=== PATIENT | female | born 1955 | race Caucasian/White ===

== ENCOUNTER → 2016-11-11 | Outpatient (CLI) | payer BC ==
[2016-11-11 15:32] LABS: Basophils % (A) 0 %; CH 30.6; CHCM 32.7; Eosinophils # (A) 0.1 k/uL (0-0.7); Eosinophils % (A) 2 %; HCT 42.8 % (34.0-46.0); HDW 2.34; Luc # (Auto) 0.09; Luc % (Auto) 2; Lymphocytes # (A) 1.3 k/uL (1.0-4.8); Lymphocytes % (A) 26 %; MCH 30.7 pg (25.0-35.0); MCHC 32.7 g/dL (31.0-37.0); Mean Platelet Volume 6.9; Monocytes # (A) 0.2 k/uL (0-1.0); Monocytes % (A) 4 %; Neutrophils # (A) 3.3 k/uL (1.3-7.7); Neutrophils % (A) 65 %; RBC 4.55 m/uL (3.80-5.40); RDW 13.8 % (11.5-15.5); WBC 5.1 k/uL (3.8-10.6); WBC (Perox) 5.18
== END | disposition home or self-care (01) ==
LOC: LABPAT 15:00
PROVIDERS: ATTEND Obstetrics & Gynecology
DX: Z01.818 Encounter for other preprocedural examination (principal); I44.0 Atrioventricular block, first degree
CPT/HCPCS: 85025; 93005

== ENCOUNTER 2016-11-17 11:18 | Day surgery (SDC) | payer BC ==
--- NOTE | 2016-11-16 10:42 | P.HPOB ---
History of Present Illness H&P Date: 11/16/16 Chief Complaint: Postmenopausal bleeding. This patient is a pleasant 61 yr female who presented to my office with complaints vaginal bleeding that started about 2 weeks ago. She stopped having menses in 2011. Had not see a physician since then. Ultrasound shows multiple uterine fibroids and endometrium is 4 mm. She now presents for hysteroscopy and D&C for further evaluation. She was noted also to have a ~1 cm endocervical polyp on exam. Review of Systems Constitutional: Denies chills, Denies fever Ears, nose, mouth and throat: Denies headache, Denies sore throat Cardiovascular: Denies chest pain, Denies shortness of breath Respiratory: Denies cough Gastrointestinal: Denies abdominal pain, Denies diarrhea, Denies nausea, Denies vomiting Genitourinary: Reports as per HPI, Reports abnormal vaginal bleeding Menstruation: Reports postmenopausal Musculoskeletal: Denies myalgias Past Medical History Past Medical History: No Reported History History of Any Multi-Drug Resistant Organisms: None Reported Past Surgical History: Orthopedic Surgery, Tonsillectomy Additional Past Surgical History / Comment(s): LEFT HAND SURGERY (ARTHRITIS) Past Anesthesia/Blood Transfusion Reactions: No Reported Reaction Additional Past Anesthesia/Blood Transfusion Reaction / Comment(s): HYPERSENTIVE TO PAIN MEDS. Past Psychological History: No Psychological Hx Reported Smoking Status: Never smoker Past Alcohol Use History: Occasional Past Drug Use History: None Reported - Past Family History Mother Family Medical History: No Reported History Medications and Allergies Home Medications Medication Instructions Recorded Confirmed Type Biotin 1 tab PO DAILY 11/12/16 11/12/16 History Cholecalciferol [Vitamin D3] 1 tab PO DAILY 11/12/16 11/12/16 History L.acidoph,Paracasei, B.lactis 1 tab PO DAILY 11/12/16 11/12/16 History [Probiotic] Magnesium 1 tab PO DAILY 11/12/16 11/12/16 History Tumeric 1 tab PO DAILY 11/12/16 History Allergies Allergy/AdvReac Type Severity Reaction Status Date / Time adhesive Allergy Rash/Hives Verified 11/12/16 11:58 Penicillins Allergy Swelling Verified 11/12/16 11:44 Exam - OBG Physical Exam Abdomen: bowel sounds normal, no diffuse tenderness, no bruit present, no guarding noted, no hepatomegaly, no splenomegaly, no mass Vulva: both: normal Vagina: normal moisture, no discharge Cervix: lesion (~1 cm cervical polyp) Uterus: enlarged Adnexa: both: normal Results Ultrasound demonstrated multiple uterine fibroids. Endometrium was 4 mm. Assessment and Plan (1) Postmenopausal bleeding Narrative/Plan: This is a pleasant 61 yr female with postmenopausal bleeding and large cervical polyp. Plan is hysteroscopy, D&C and removal of her polyp. I have discussed this surgery in detail with the patient including the risks: infection, bleeding, possible uterine perforation. All of the patients questions were answered and a written consent was obtained. Status: Acute (2) Cervical polyp Status: Acute
[~2016-11-17 11:18] MED LIST: DEXAMETHASONE SOD PHOSPHATE 10 MG/ML 1 ML VIAL IV ONE; HYDROmorphone 1 MG/ML 1 ML SYRINGE IVP PRN; LACTATED RINGERS 1,000 ML IV SCH; LIDOCAINE 1% 20 ML VIAL (10MG/ML) FOR IV START INTRADERMA PRN; MIDAZOLAM 2 MG/2 ML VIAL IV PRN; ONDANSETRON 4 MG/2 ML VIAL IVP ONE; Pre Op ABX Message 1 EACH MISC MISCELLANE ONE; SCOPOLAMINE 1.5MG/72HR PATCH TRANSDERM ONE
[2016-11-17] MEDS ORDERED: LACTATED RINGERS 1,000 ML IV ONE (12:21)
[2016-11-17] MEDS ORDERED: fentaNYL (PF) 50 MCG/ML 2 ML AMP ONE (12:21)
[2016-11-17] MEDS ORDERED: KETOROLAC 30 MG/ML 1 ML VIAL ONE (12:21)
[2016-11-17] MEDS ORDERED: PROPOFOL 10 MG/ML 20 ML VIAL IV ONE (12:21)
[2016-11-17] MEDS ORDERED: MIDAZOLAM 2 MG/2 ML VIAL ONE (12:21)
[2016-11-17 12:51] VITALS: TEMP 98.4
--- NOTE | 2016-11-17 12:54 | P.OP ---
Date of Procedure: 11/17/16 Preoperative Diagnosis: Post menopausal bleeding and cervical polyp Postoperative Diagnosis: Same, endometrial polyp Procedure(s) Performed: #1: Hysteroscopy. #2: Dilation and curettage. #3: Cervical and endometrial polypectomy Implants: Anesthesia: MAC Surgeon: Mack Machado Estimated Blood Loss (ml): 10 Urine output (ml): 10 Pathology: other (Cervical polyp and endometrial curettings.) Condition: stable Disposition: PACU Indications for Procedure: Please see dictated H&P for intimate details of this patient's admission. Brief summary this is a pleasant 61-year-old multigravida patient who presented to me with complaints of postmenopausal bleeding. Patient's evaluation showed us endocervical polyp and uterine fibroids. Endometrial lining was 4 mm. Patient now presents for polypectomy, hysteroscopy, D&C for further evaluation. Patient does understand the surgery and risks including risks of infection, bleeding, possible uterine perforation. All the patient's questions are answered written consent is obtained. Operative Findings: This patient had a 1 cm cervical polyp and a 2 cm endometrial polyp. Uterus is enlarged approximately 12-14 weeks size consistent with uterine fibroids. The endometrial lining itself otherwise looked atrophic. Description of Procedure: This patient is taken to the operating room where she is laid in the supine position. She subsequently undergoes general mask anesthesia without incident. With adequate level of anesthesia she's placed in dorsal lithotomy position. She has a vaginal perineal prep and drape. Examination under anesthesia shows uterus to be mobile 12-14 weeks' size. She has a grade 2-3 cystocele. She has cervical prolapse to the introitus. With this done a red Reyna catheters placed in the bladder for 10 mL of clear urine. A weighted speculum was placed in the posterior vagina and the anterior lip of the cervix is gravid and Allis clamp. The cervical polyp was then grasped with a ring forceps and twisted off its base and sent off separately to pathology. Uterus is then sounded to approximately 8 cm. Gentle dilation is done of the endocervix to allow the hysteroscope easily and the uterine cavity. Using saline solution hysteroscopy is performed and a 1-2 cm polyp was noted in the anterior endometrium. This does appear benign. The rest of the endometrial cavity appears clear without rales polyps or abnormalities. I then removed the hysteroscope. I dilate the cervix more to allow the polyp forceps easily and the uterine cavity. Using these polyp forceps, I'm able to remove this large endometrial polyp and sent off to pathology. A gentle but vigorous curettage of all 4 quadrants is then done for scant amount of tissue and again this tissue sent off to pathology. With this done the procedure is then terminated. The Allis clamp and weighted speculum was removed. Bleeding is minimal. All counts are correct 3. There are no complications. Patient is awakened from anesthesia and taken to the recovery room in satisfactory condition.
[2016-11-17 13:18] VITALS: RESP 18
[2016-11-17 13:45] VITALS: BP 107/74; PULSE 65
== END 2016-11-17 14:07 | disposition home or self-care (01) ==
LOC: OR 11:18
PROVIDERS: ATTEND Obstetrics & Gynecology
DX: D25.9 Leiomyoma of uterus, unspecified (principal); N84.0 Polyp of corpus uteri; N84.1 Polyp of cervix uteri; Z88.0 Allergy status to penicillin; Z91.09 Other allergy status, other than to drugs and biological substances
CPT/HCPCS: 58558; 88305; 88342; J2250; J1100; J2405; J3010; J1885; J2704

== ENCOUNTER → 2017-05-21 | Outpatient (CLI) | payer BC ==
--- NOTE | 2017-05-21 13:19 | BD ---
EXAMINATION TYPE: MG DEXA axial skeleton. DATE OF EXAM: 05/21/2017 CLINICAL HISTORY: Height: 65.5 Weight: 157 pounds FRAX RISK QUESTIONS: Alcohol (3 or more units per day): no Family History (Parent hip fracture): no Glucocorticoids (More than 3mos): no (Ex: prednisone, prednisolone, methylprednisolone, dexamethasone, and hydrocortisone). History of Fracture in Adulthood: toe Secondary Osteoporosis: 1. Type 1 Diabetes: no 2. Hyperthyroidism: no 3. Menopause before 45: no 4. Malnutrition: no 5. Chronic liver disease: no Rheumatoid Arthritis: no Current Tobacco Use: no RISK FACTORS HISTORY OF: Family History of Osteoporosis: no Active: yes Diet low in dairy products/other sources of calcium: no Postmenopausal woman: no Take estrogen and/or progesterone medications: no Lost more than 2 inches in height since high school: no Frequent falls: no Poor Health: no Hyperparathyroidism: no Adrenal Insufficiency: no MEDICATIONS: Prednisone or other steroids: no Thyroid Medications: no Osteoporosis Medications: no Additional Medications: Vitamin D EXAM MEASUREMENTS: Bone mineral densitometry was performed using the [employer]. Bone mineral density as measured about the Lumbar spine is: ----- L1-L4(G/cm2): 1.263 T Score Values are as follows: ----- L2: 0.5 ----- L3: 1.4 ----- L4: 0.7 ----- L1-L4: 0.7 Bone mineral density has: Decreased -6.0% since study of: 01/08/2012 Bone mineral density about the R hip (g/cm2): 0.914 Bone mineral density about the L hip (g/cm2): 0.953 T Score values are as follows: -----R Neck: -0.9 -----L Neck: -0.6 -----R Total: 0.2 -----L Total: -0.1 Bone mineral density has: Decreased -6.0% since study of: 01/08/2012 IMPRESSION: Normal (Values between +1 and -1 indicate normal bone mass). Consider repeating this study in 5 year s or sooner if there is some new clinical indication. NOTE: T-SCORE=SD OF THE YOUNG ADULT MEAN.
--- NOTE | 2017-05-22 11:43 | MM ---
Reason for exam: screening (asymptomatic). Last mammogram was performed 5 years and 4 months ago. History: Patient is postmenopausal. Physical Findings: A clinical breast exam by your physician is recommended on an annual basis and results should be correlated with mammographic findings. MG Screening Mammo w CAD Bilateral CC and MLO view(s) were taken. Prior study comparison: January 08, 2012, bilateral digital screening mammo w/CAD. The breast tissue is heterogeneously dense. This may lower the sensitivity of mammography. There is no discrete abnormality. ASSESSMENT: Negative, BI-RAD 1 RECOMMENDATION: Routine screening mammogram of both breasts in 1 year.
== END | disposition home or self-care (01) ==
LOC: RADMAMWWP 09:08
PROVIDERS: ATTEND Obstetrics & Gynecology
DX: Z12.31 Encounter for screening mammogram for malignant neoplasm of breast (principal); Z13.820 Encounter for screening for osteoporosis
CPT/HCPCS: 77080; G0202

== ENCOUNTER → 2017-12-23 | Outpatient (CLI) | payer BC ==
[2017-12-23 11:58] LABS: T4, Free (Free Thyroxine) 1.07 ng/dL (0.78-2.19)
--- NOTE | 2017-12-23 12:05 | US ---
EXAMINATION TYPE: US thyroid st tissue head/neck DATE OF EXAM: 12/23/2017 COMPARISON: NONE CLINICAL HISTORY: Z80.8 Family history of thyroid CA. GLAND SIZE: Right Lobe: 4.7 x 1.6 x 1.3 cm Overall Parenchyma: homogenous Left Lobe: 3.3 x 1.2 x 1.4 cm Overall Parenchyma: homogeneous Isthmus Thickness: 0.4 cm NODULES RIGHT: # of nodules measured on right: 1 1. 1.3 X 1.1 x 0.7 cm hypoechoic complex cystic nodule at the lower pole with well-defined margins; interrupted peripheral calcification. This nodule is wider than tall and shows no intranodular vasc ularity. LEFT: # of nodules measured on left: 1 1. 0.5 X 0.4 x 0.4 cm hypoechoic solid nodule at the upper pole with poorly defined margins. This nodule is wider as is tall and shows no intranodular vascularity. ISTHMUS: # of nodules measured in the isthmus: 0 Bilateral neck scanned, no evidence of lymphadenopathy. IMPRESSION: There is a 1.3 cm right thyroid nodule.
== END | disposition home or self-care (01) ==
LOC: LABWHC1 10:43
PROVIDERS: ATTEND Internal Medicine Endocrinology, Diabetes & Metabolism
DX: E04.1 Nontoxic single thyroid nodule (principal); R53.83 Other fatigue; Z80.8 Family history of malignant neoplasm of other organs or systems
CPT/HCPCS: 36415; 76536; 82533; 82607; 84146; 84439; 84443; 84481

== ENCOUNTER → 2018-01-04 | Outpatient (CLI) | payer BC ==
[2018-01-04 14:10] LABS: T4, Free (Free Thyroxine) 1.07 ng/dL (0.78-2.19)
== END | disposition home or self-care (01) ==
LOC: LABWHC1 12:47
PROVIDERS: ATTEND Internal Medicine Endocrinology, Diabetes & Metabolism
DX: R53.83 Other fatigue (principal); Z80.8 Family history of malignant neoplasm of other organs or systems
CPT/HCPCS: 36415; 84439; 84443; 84481

== ENCOUNTER → 2018-07-05 | Outpatient (CLI) | payer BC ==
--- NOTE | 2018-07-06 10:30 | MM ---
Reason for exam: screening (asymptomatic). Last mammogram was performed 1 year and 1 month ago. History: Patient is postmenopausal. Physical Findings: A clinical breast exam by your physician is recommended on an annual basis and results should be correlated with mammographic findings. MG 3D Screening Mammo W/Cad Bilateral CC and MLO view(s) were taken. Prior study comparison: May 21, 2017, bilateral MG screening mammo w CAD. January 08, 2012, bilateral digital screening mammo w/CAD. The breast tissue is heterogeneously dense. This may lower the sensitivity of mammography. There are benign appearing round calcifications bilaterally. There is no discrete abnormality. ASSESSMENT: Benign, BI-RAD 2 RECOMMENDATION: Routine screening mammogram of both breasts in 1 year.
== END | disposition home or self-care (01) ==
LOC: RADMAMWWP 09:15
PROVIDERS: ATTEND Obstetrics & Gynecology
DX: Z12.31 Encounter for screening mammogram for malignant neoplasm of breast (principal)
CPT/HCPCS: 77063; 77067